=== PATIENT | male | born 1970 | race Caucasian/White ===

== ENCOUNTER 2024-07-14 07:41 | Day surgery (SDC) | payer OTHER, SELFPAY ==
--- NOTE | 2024-07-14 | PATH_ITS ---
[facility] Accession Number: [id number] No. of containers..01 Tissue . 01 Material submitted: . colon - ASCENDING POLYP . 01 Diagnosis: ASCENDING POLYP: Tubular adenoma. STO 07/18/2024 1448 Local . 01 Electronically signed: . Elliot Johnson MD, Pathologist NPI- [id number] . 01 Gross description: . Received in formalin with two patient identifiers and ascending colon polyp, is a single mendenhall soft tissue fragments, 0.5 cm in greatest dimension, submitted in A1. ([id number]) /MRV 07/18/20248 Local . 01 Pathologist provided ICD-10: D12.2 . 01 CPT . 649239 Specimen Comment: A courtesy copy of this report has been sent to [phone] Performed at: [address] [facility] [id number] MD Elliot Johnson MD Phone: [phone]
[2024-07-14 08:01] VITALS: BP 119/74; PULSE 53; RESP 17; TEMP 36.4; O2SAT 97
--- NOTE | 2024-07-14 08:27 | P.HP_ITS ---
History of Present Illness History of Present Illness Date Patient Seen: 07/14/24 Time Patient Seen: 08:27 Chief complaint: Screening Colonoscopy Narrative: Prasanth is a 54-year-old man who is here for his first screening colonoscopy. No family history of colon cancer. [facility] Family History (Updated 08/25/16 @ 00:00 by Conversion Provider) Father Age: 93 [place] (myocardial infarction) Hypertension Mother Age: 87 History of hip replacement, unspecified laterality Grandmother Malignant neoplasm of lung, unspecified laterality, unspecified part of lung Social History Smoking Status: Never smoker alcohol intake: current Meds Home Medications and Allergies Home Medications Medication Instructions Recorded Confirmed Type sodium,potassium,mag sulfates 17.5 See Rx Instructions PO .COMPLEX 06/03/24 07/14/24 Rx gram-3.13 gram-1.6 gram oral soln #354 mL (Suprep Bowel Prep Kit) Allergies Allergy/AdvReac Type Severity Reaction Status Date / Time KIWI Allergy Severe THROAT Uncoded 07/14/24 08:08 SWELLING Exam Vital Signs (past 8 hours): - 07/14/24 08:01 Temperature 97.5 F L Pulse Rate 53 L Respiratory Rate 17 Blood Pressure 119/74 Pulse Oximetry 97 Oxygen Delivery Method Room Air Oxygen Delivery Method Room Air Const General: healthy appearing Assessment & Plan Assessment and plan (1) Colon cancer screening: Status: Acute Plan We discussed the risks and benefits of colonoscopy for colon cancer screening. He would like to proceed Time-Based Coding :: [TOTAL MINUTES] spent with patient and on the chart (including review of chart, obtaining history, exam, reviewing outside data, placing orders, documenting exam and treatment plan, and counseling patient) on [DATE].
[2024-07-14 08:55] VITALS: BP 98/66; PULSE 57; RESP 14; TEMP 36.1; O2SAT 94
--- NOTE | 2024-07-14 08:56 | PM.OP.COLON ---
Operative Date/Time/Diagnoses Date of procedure: 07/14/24 Time of procedure: 08:56 Pre-op diagnosis: Colon cancer screening Post-op diagnosis: same Procedure & Clinicians Study performed: Colonoscopy Same procedure as scheduled: Yes Surgeon: Mason Mccarty Procedure Notes Procedure in detail: Surgeon: Mason Mccarty MD Anesthesia: Beni Justice MD Procedure: The patient was brought to the endoscopy suite, placed in left lateral decubitus position. The patient was connected to monitoring devices. A time-out was performed. Sedation was administered. Once the patient was adequately sedated, a digital rectal exam was performed and was normal. The scope was then inserted and advanced to the cecum where the appendiceal orifice was identified and photographed. The scope was then slowly withdrawn over greater than 6 minutes. The mucosa was thoroughly inspected. There was a 6 mm polyp in the ascending colon removed with a cold snare. The scope was retroflexed in the rectum. No other abnormalities were identified. The scope was straightened and removed. The patient was awakened and brought to recovery. Scope withdrawal time: 7 minutes Sedation time: 16 minutes EBL: 5 mL Findings: 6 mm ascending colon polyp Post-procedure Disposition: PACU
[2024-07-14 09:00] VITALS: BP 94/69; PULSE 54; RESP 17; O2SAT 94
[2024-07-14 09:04] VITALS: BP 122/81; PULSE 66; RESP 13; O2SAT 95
[2024-07-14 09:10] VITALS: BP 111/78; PULSE 54; RESP 21; O2SAT 96
== END 2024-07-14 09:14 | disposition home or self-care (01) ==
PROVIDERS: PCP Internal Medicine; Referring Provider Surgery; Visit Provider Surgery
PROC: 0DJD8ZZ Inspection of Lower Intestinal Tract, Via Natural or Artificial Opening Endoscopic (ICD-10-PCS; CPT 45378; principal; 2024-07-14 08:45)
DX: Z12.11 Encounter for screening for malignant neoplasm of colon (principal)
CPT/HCPCS: 45385; J2704